=== PATIENT | female | born 1945 | race Caucasian/White ===

== ENCOUNTER 2025-02-09 17:19 | Emergency (ER) | payer MEDICARE ==
[~2025-02-09] VITALS: Ht 165.1 cm; Wt 63.6 kg
[2025-02-09 17:32] VITALS: BP 168/86; PULSE 112; RESP 18; TEMP 97.8; O2SAT 98
--- NOTE | 2025-02-09 17:48 | ELECTROCARDIOGRAPH REPORT ---
[facility] Test Date: 2025-02-09 Test Time: 17:46:42 Pat Name: JHON SORENSEN Department: [facility] Patient ID: [facility]-[id number] Room: Gender: F [employer]: : 1945 Requested By: AMERICA CRUZ Order Number: [id number] Reading MD: Dr. Dwight Sher Measurements Intervals [place] Rate: 125 P: 37 IN: 138 QRS: 66 QRSD: 90 T: -11 QT: 320 QTc: 462 Interpretive Statements Sinus tachycardia Borderline repolarization abnormality Artifact in lead(s) I,II,III,aVR,aVL,aVF,V3 and baseline wander in lead(s) V3 Electronically Signed On 02-17-2025 0:23:[address] Dwight Sher Please click the below link to view image of tracing.
--- NOTE | 2025-02-09 18:01 | RADIOLOGY REPORT ---
AP portable chest CLINICAL INDICATION: CP FINDINGS: Heart size is normal. The aorta is tortuous. No infiltrates or effusions. Question of bullae/ scarring in the right lung base. Prominent pulmonary artery segments raise question of pulmonary artery hypertension IMPRESSION: 1. No acute cardiopulmonary pathology.
[2025-02-09 18:46] LABS: MEAN PLATELET VOLUME 7.0 FL (7.4-10.4); RED CELL DISTRIBUTION WIDTH 14.6 % (11.5-14.5)
[2025-02-09 19:04] LABS: CREATININE 1.08 MG/DL (0.40-0.90); TOTAL CARBON DIOXIDE 21.2 MMOL/L (24-32); eCRCL 37 ML/MIN; eGFR 49 ML/MIN
== END 2025-02-09 21:32 | disposition left against medical advice (07) ==
LOC: ER 17:20
DX: S40.021A Contusion of right upper arm, initial encounter (principal); X58.XXXA Exposure to other specified factors, initial encounter; Z91.040 Latex allergy status; Z53.21 Procedure and treatment not carried out due to patient leaving prior to being seen by health care provider; Y93.89 Activity, other specified; Y92.89 Other specified places as the place of occurrence of the external cause; Y99.8 Other external cause status
CPT/HCPCS: 71045; 80053; 83690; 85025; 93005; 99281